=== PATIENT | female | born 1955 ===

== ENCOUNTER 2017-12-23 17:01 | Emergency (ER) | payer MEDICARE, MEDICAID ==
[~2017-12-23] VITALS: Ht 154.9 cm; Wt 59.9 kg
[2017-12-23] MEDS ORDERED: CITA40TA22 PO (17:26)
[2017-12-23] MEDS ORDERED: CLON1TAB PO (17:26)
[2017-12-23] MEDS ORDERED: PROP10TA10 PO (17:26)
[2017-12-23 17:57] LABS: *BILIRUBIN,URIN NEGATIVE (NEGATIVE); *BLOOD, URINE NEGATIVE (NEGATIVE); *CLARITY,URINE SLIGHTLY CLOUDY (CLEAR); *COLOR,URINE YELLOW (YELLOW); *KETONES,URINE NEGATIVE (NEGATIVE); *PROTEIN,URINE NEGATIVE (NEGATIVE); *UROBILINOGEN,URINE 0.2 E.U./dl (NORMAL); LEUKOCYTE ESTERASE ,URINE 1+ (NEGATIVE); NITRITE, URINE NEGATIVE (NEGATIVE); UGLUCOSE NEGATIVE (NEGATIVE)
[2017-12-23 17:59] LABS: BASOPHILS # (AUTO) 0.1 K/uL (0.0-8.0); BASOPHILS % (AUTO) 0.7 % (0.0-2.0); EOSINOPHILS # (AUTO) 0.1 K/uL (0.0-0.7); EOSINOPHILS % (AUTO) 0.9 % (0.0-7.0); HEMATOCRIT 36.4 % (31.2-41.9); HEMOGLOBIN 12.2 g/dL (10.9-14.3); LYMPHOCYTES # (AUTO) 3.6 K/uL (20.0-40.0); LYMPHOCYTES % (AUTO) 47.3 % (20.5-51.5); MEAN CORPUSCULAR HEMOGLOBIN 29.4 uug (24.7-32.8); MEAN CORPUSCULAR HGB CONC 34 g/dL (32.3-35.6); MEAN CORPUSCULAR VOLUME 87.8 fL (75.5-95.3); MONOCYTES # (AUTO) 0.5 K/uL (2.0-10.0); MONOCYTES % (AUTO) 7.2 % (0.0-11.0); NEUTROPHILS # (AUTO) 3.4 K/uL (1.8-8.9); NEUTROPHILS % (AUTO) 43.9 % (38.5-71.5); PLATELET COUNT (AUTO) 311 K/uL (179-408); RED BLOOD CELL COUNT(AUTO) 4.14 MIL/uL (3.63-4.92); WHITE BLOOD COUNT (AUTO) 7.6 K/uL (3.8-11.8)
[2017-12-23 18:02] LABS: BACTERIA,URINE MANY /HPF (NONE SEEN); RBC,URINE 0-3 /HPF (0-3); SQUAMOUS EPITHELIAL CELL,UR FEW /HPF (NONE SEEN)
[2017-12-23 18:05] LABS: *AMPHETAMINE, URINE NEGATIVE (NEGATIVE); *BARBITURATE, URINE NEGATIVE (NEGATIVE); *CANNABINOID, URINE NEGATIVE (NEGATIVE); *COCCAINE, URINE NEGATIVE (NEGATIVE); *OPIATE, URINE POSITIVE (NEGATIVE); *PHENCYCLIDINE SCREEN,URINE NEGATIVE (NEGATIVE); CARBON DIOXIDE 26 mmol/L (21-32); CHLORIDE 103 mmol/L (98-107); CREATININE 0.9 mg/dL (0.6-1.3); ETHANOL < 3 MG/DL (0-0); GLUCOSE 65 mg/dL (74-106); POTASSIUM 3.7 mmol/L (3.5-5.1); UREA NITROGEN, BLOOD 14 mg/dL (7-18)
--- NOTE | 2017-12-23 18:16 | NUR ---
[facility] sandwich and juice provided for pt.
[2017-12-23 18:17] LABS: ALANINE AMINOTRANSFERASE 21 U/L (14-59); ALKALINE PHOSPHATASE 93 U/L (50-136); ASPARTATE AMINOTRANSFERASE 14 U/L (15-37); BILIRUBIN,DIRECT 0.1 mg/dL (0.0-0.2); BILIRUBIN,TOTAL 0.4 mg/dL (0.2-1.0); TOTAL PROTEIN, SERUM 7.2 g/dL (6.4-8.2)
--- NOTE | 2017-12-23 18:23 | NUR ---
pt medically cleard. called jay for psych eval.
--- NOTE | 2017-12-23 19:00 | NUR ---
pinky at bedside for psych eval.
--- NOTE | 2017-12-23 19:51 | NUR ---
GROUND SOURCE HEAT PUMP TECHNICIAN determined patient did not meet criteria for 5150 hold, while GROUND SOURCE HEAT PUMP TECHNICIAN was attempting to obtain placement and/or authorize admission patient stated that she did not wish to wait any longer. Patient eloped from facility. ER physician notified.
== END 2017-12-23 19:55 | disposition left against medical advice (07) ==
LOC: ER 17:03
DX: F41.9 Anxiety disorder, unspecified (principal); F32.9 Major depressive disorder, single episode, unspecified; M54.5 Low back pain; R06.02 Shortness of breath; M79.604 Pain in right leg; F17.290 Nicotine dependence, other tobacco product, uncomplicated; Z88.2 Allergy status to sulfonamides; Z88.5 Allergy status to narcotic agent
CPT/HCPCS: 36415; 71045; 80048; 80076; 80307; 81001; 85025; 87086; 93005; 99285; 99406; G0480; A4663

== ENCOUNTER 2017-12-24 19:45 | Inpatient (IN) | payer MEDICARE, MEDICAID ==
[~2017-12-24] VITALS: Ht 154.9 cm; Wt 62.6 kg
[~2017-12-24 19:45] MED LIST: CITA40TA22 PO; CLON1TAB PO; PROP10TA10 PO
[2017-12-24] MEDS ORDERED: HYDROCODONE/APAP 10-325 MG TABLET PO ONE (20:30)
[2017-12-24] MEDS ORDERED: HYDROCODONE/APAP 10-325 MG TABLET ONE (20:32)
[2017-12-24 20:47] LABS: BASOPHILS # (AUTO) 0.1 K/uL (0.0-8.0); BASOPHILS % (AUTO) 0.7 % (0.0-2.0); EOSINOPHILS # (AUTO) 0.1 K/uL (0.0-0.7); EOSINOPHILS % (AUTO) 0.7 % (0.0-7.0); HEMATOCRIT 34.5 % (31.2-41.9); HEMOGLOBIN 11.7 g/dL (10.9-14.3); LYMPHOCYTES # (AUTO) 2.9 K/uL (20.0-40.0); LYMPHOCYTES % (AUTO) 31.3 % (20.5-51.5); MEAN CORPUSCULAR HEMOGLOBIN 29.6 uug (24.7-32.8); MEAN CORPUSCULAR HGB CONC 34 g/dL (32.3-35.6); MEAN CORPUSCULAR VOLUME 87.1 fL (75.5-95.3); MONOCYTES # (AUTO) 0.8 K/uL (2.0-10.0); MONOCYTES % (AUTO) 8.1 % (0.0-11.0); NEUTROPHILS # (AUTO) 5.5 K/uL (1.8-8.9); NEUTROPHILS % (AUTO) 59.2 % (38.5-71.5); PLATELET COUNT (AUTO) 280 K/uL (179-408); RED BLOOD CELL COUNT(AUTO) 3.96 MIL/uL (3.63-4.92); WHITE BLOOD COUNT (AUTO) 9.4 K/uL (3.8-11.8)
[2017-12-24 20:56] LABS: CARBON DIOXIDE 26 mmol/L (21-32); CHLORIDE 101 mmol/L (98-107); CREATININE 0.8 mg/dL (0.6-1.3); GLUCOSE 86 mg/dL (74-106); POTASSIUM 3.4 mmol/L (3.5-5.1); UREA NITROGEN, BLOOD 14 mg/dL (7-18)
[2017-12-24 21:10] LABS: ETHANOL < 3 MG/DL (0-0)
[2017-12-24 21:12] LABS: ALANINE AMINOTRANSFERASE 19 U/L (14-59); ALKALINE PHOSPHATASE 91 U/L (50-136); ASPARTATE AMINOTRANSFERASE 16 U/L (15-37); BILIRUBIN,DIRECT 0.1 mg/dL (0.0-0.2); BILIRUBIN,TOTAL 0.3 mg/dL (0.2-1.0)
[2017-12-24 21:14] LABS: ACETAMINOPHEN < 2.0 ug/mL (10-30)
[2017-12-24] MEDS ORDERED: POTASSIUM CHLORIDE 20 MEQ TAB.PRT.SR ONE (21:29)
[2017-12-24] MEDS ORDERED: POTASSIUM CHLORIDE 20 MEQ TAB.PRT.SR PO ONE (21:30)
[2017-12-24] MEDS ORDERED: ACETAMINOPHEN 325 MG TABLET PO PRN (23:45)
[2017-12-25] VITALS: BP 95/50
[2017-12-25] MEDS ORDERED: MAGNESIUM HYDROXIDE 30 ML LIQUID UDC PO PRN (00:45)
[2017-12-25] MEDS ORDERED: ZOLPIDEM 5 MG TABLET PO PRN (00:45)
[2017-12-25] MEDS: NICOTINE 14 MG/24HR PATCH TD SCH ×2 (00:58→08:29)
[2017-12-25] MEDS: PROPRANOLOL HCL 10 MG TABLET PO SCH ×3 (07:01→22:00)
[2017-12-25 10:03] VITALS: BP 108/68
[2017-12-25] MEDS: HYDROCODONE/APAP 5-325MG TABLET PO PRN ×2 (10:03→19:57)
[2017-12-25 11:16] VITALS: BP 115/47
[2017-12-25] MEDS: QUETIAPINE FUMARATE 25 MG TABLET PO SCH ×2 (13:19→16:23)
[2017-12-25] MEDS: CITALOPRAM 20 MG TABLET PO SCH (13:19)
[2017-12-25 14:52] LABS: *AMPHETAMINE, URINE NEGATIVE (NEGATIVE); *BARBITURATE, URINE NEGATIVE (NEGATIVE); *CANNABINOID, URINE NEGATIVE (NEGATIVE); *COCCAINE, URINE NEGATIVE (NEGATIVE); *OPIATE, URINE POSITIVE (NEGATIVE); *PHENCYCLIDINE SCREEN,URINE NEGATIVE (NEGATIVE)
[2017-12-25 15:19] VITALS: BP 100/54
[2017-12-25 20:09] VITALS: BP 110/61
[2017-12-26] MEDS: HYDROCODONE/APAP 5-325MG TABLET PO PRN ×3 (05:45→20:43)
[2017-12-26] MEDS: PROPRANOLOL HCL 10 MG TABLET PO SCH ×3 (06:00→21:56)
[2017-12-26] MEDS: CITALOPRAM 20 MG TABLET PO SCH (09:45)
[2017-12-26] MEDS: NICOTINE 14 MG/24HR PATCH TD SCH (09:46)
[2017-12-26] MEDS: ASPIRIN EC 81 MG TABLET.DR PO SCH (09:46)
[2017-12-26] MEDS: QUETIAPINE FUMARATE 25 MG TABLET PO SCH ×3 (09:46→17:04)
[2017-12-26] MEDS: LORAZEPAM 0.5 MG TABLET PO PRN ×3 (09:54→21:57)
[2017-12-26 11:03] VITALS: BP 104/46
[2017-12-26 15:17] VITALS: BP 100/51
[2017-12-26 19:10] VITALS: BP 110/56
[2017-12-26] MEDS: EZETIMIBE 10 MG TABLET PO SCH (20:43)
[2017-12-26] MEDS: ATORVASTATIN 40 MG TABLET PO SCH (20:43)
[2017-12-27] VITALS (7 sets, daily range): BP systolic 79–118; BP diastolic 35–62
[2017-12-27] MEDS: HYDROCODONE/APAP 5-325MG TABLET PO PRN ×3 (05:02→17:35)
[2017-12-27] MEDS: PROPRANOLOL HCL 10 MG TABLET PO SCH ×3 (06:00→22:00)
[2017-12-27] MEDS: QUETIAPINE FUMARATE 25 MG TABLET PO SCH ×3 (08:33→20:15)
[2017-12-27] MEDS: ASPIRIN EC 81 MG TABLET.DR PO SCH (08:33)
[2017-12-27] MEDS: CITALOPRAM 20 MG TABLET PO SCH (08:33)
[2017-12-27] MEDS: NICOTINE 14 MG/24HR PATCH TD SCH (08:33)
[2017-12-27] MEDS: LORAZEPAM 0.5 MG TABLET PO PRN ×2 (13:45→20:15)
[2017-12-27] MEDS: ATORVASTATIN 40 MG TABLET PO SCH (20:15)
[2017-12-27] MEDS: EZETIMIBE 10 MG TABLET PO SCH (20:15)
[2017-12-28 04:55] VITALS: BP 103/58
[2017-12-28] MEDS: PROPRANOLOL HCL 10 MG TABLET PO SCH ×3 (06:00→21:09)
[2017-12-28] MEDS: HYDROCODONE/APAP 5-325MG TABLET PO PRN ×2 (06:40→15:00)
[2017-12-28] MEDS: ASPIRIN EC 81 MG TABLET.DR PO SCH (09:50)
[2017-12-28] MEDS: CITALOPRAM 20 MG TABLET PO SCH (09:50)
[2017-12-28] MEDS: NICOTINE 14 MG/24HR PATCH TD SCH (09:50)
[2017-12-28] MEDS: HYDROXYZINE PAMOATE 25 MG CAPSULE PO PRN ×2 (10:52→18:55)
[2017-12-28 11:08] VITALS: BP 117/50
[2017-12-28 15:27] VITALS: BP 107/48
[2017-12-28 20:02] VITALS: BP 125/58
[2017-12-28] MEDS: ATORVASTATIN 40 MG TABLET PO SCH (21:05)
[2017-12-28] MEDS: NITROFURANTOIN/NITROFURAN MAC 100 MG CAPSULE PO SCH (21:05)
[2017-12-28] MEDS: EZETIMIBE 10 MG TABLET PO SCH (21:06)
[2017-12-28] MEDS: QUETIAPINE FUMARATE 25 MG TABLET PO SCH (21:06)
[2017-12-29] MEDS: HYDROCODONE/APAP 5-325MG TABLET PO PRN ×3 (03:29→18:50)
[2017-12-29 04:00] VITALS: BP 110/47
[2017-12-29] MEDS: PROPRANOLOL HCL 10 MG TABLET PO SCH ×3 (05:58→22:00)
[2017-12-29] MEDS: HYDROXYZINE PAMOATE 25 MG CAPSULE PO PRN (06:34)
[2017-12-29] MEDS: NITROFURANTOIN/NITROFURAN MAC 100 MG CAPSULE PO SCH ×2 (09:07→20:40)
[2017-12-29] MEDS: CITALOPRAM 20 MG TABLET PO SCH (09:07)
[2017-12-29] MEDS: ASPIRIN EC 81 MG TABLET.DR PO SCH (09:07)
[2017-12-29] MEDS: NICOTINE 14 MG/24HR PATCH TD SCH (09:08)
[2017-12-29 11:10] VITALS: BP 111/63
[2017-12-29] MEDS: MAG HYDROX/AL HYDROX/SIMETH 30 ML LIQUID UDC PO PRN (12:33)
[2017-12-29 15:14] VITALS: BP 107/54
[2017-12-29 20:00] VITALS: BP 107/50
[2017-12-29] MEDS: EZETIMIBE 10 MG TABLET PO SCH (20:40)
[2017-12-29] MEDS: ATORVASTATIN 40 MG TABLET PO SCH (20:41)
[2017-12-29] MEDS: QUETIAPINE FUMARATE 25 MG TABLET PO SCH (20:41)
[2017-12-30 04:00] VITALS: BP 116/64
[2017-12-30] MEDS: HYDROCODONE/APAP 5-325MG TABLET PO PRN ×3 (06:27→23:09)
[2017-12-30] MEDS: PROPRANOLOL HCL 10 MG TABLET PO SCH ×3 (06:31→22:00)
[2017-12-30 06:53] LABS: BASOPHILS % (AUTO) 0.6 % (0.0-2.0); EOSINOPHILS # (AUTO) 0.1 K/uL (0.0-0.7); EOSINOPHILS % (AUTO) 1.5 % (0.0-7.0); HEMOGLOBIN 12.6 g/dL (10.9-14.3); LYMPHOCYTES # (AUTO) 2.6 K/uL (20.0-40.0); LYMPHOCYTES % (AUTO) 37.8 % (20.5-51.5); MEAN CORPUSCULAR HEMOGLOBIN 29.7 uug (24.7-32.8); MEAN CORPUSCULAR HGB CONC 34 g/dL (32.3-35.6); MEAN CORPUSCULAR VOLUME 87.2 fL (75.5-95.3); MONOCYTES # (AUTO) 0.6 K/uL (2.0-10.0); MONOCYTES % (AUTO) 8.7 % (0.0-11.0); NEUTROPHILS # (AUTO) 3.5 K/uL (1.8-8.9); NEUTROPHILS % (AUTO) 51.4 % (38.5-71.5); PLATELET COUNT (AUTO) 322 K/uL (179-408); RED BLOOD CELL COUNT(AUTO) 4.25 MIL/uL (3.63-4.92); WHITE BLOOD COUNT (AUTO) 6.8 K/uL (3.8-11.8)
[2017-12-30 07:27] LABS: BILIRUBIN,TOTAL 0.3 mg/dL (0.2-1.0); CREATININE 0.8 mg/dL (0.6-1.3); MAGNESIUM 1.9 mg/dL (1.8-2.4); PHOSPHOROUS 3.8 mg/dL (2.5-4.9); TOTAL PROTEIN, SERUM 7.2 g/dL (6.4-8.2); URIC ACID 3.5 mg/dL (2.6-6.0)
[2017-12-30] MEDS: ASPIRIN EC 81 MG TABLET.DR PO SCH (08:01)
[2017-12-30] MEDS: NITROFURANTOIN/NITROFURAN MAC 100 MG CAPSULE PO SCH ×2 (08:01→20:04)
[2017-12-30] MEDS: NICOTINE 14 MG/24HR PATCH TD SCH (08:01)
[2017-12-30] MEDS: CITALOPRAM 20 MG TABLET PO SCH (08:01)
[2017-12-30 11:01] VITALS: BP 121/46
[2017-12-30] MEDS: HYDROXYZINE PAMOATE 25 MG CAPSULE PO PRN (12:56)
[2017-12-30 15:14] VITALS: BP 120/48
[2017-12-30 20:00] VITALS: BP 94/52
[2017-12-30] MEDS: QUETIAPINE FUMARATE 25 MG TABLET PO SCH (20:05)
[2017-12-30] MEDS: ATORVASTATIN 40 MG TABLET PO SCH (20:05)
[2017-12-30] MEDS: EZETIMIBE 10 MG TABLET PO SCH (20:05)
[2017-12-31 05:00] VITALS: BP 113/69
[2017-12-31] MEDS: PROPRANOLOL HCL 10 MG TABLET PO SCH ×3 (05:16→22:00)
[2017-12-31] MEDS: HYDROCODONE/APAP 5-325MG TABLET PO PRN ×3 (07:30→23:42)
[2017-12-31] MEDS: NICOTINE 14 MG/24HR PATCH TD SCH (09:15)
[2017-12-31] MEDS: NITROFURANTOIN/NITROFURAN MAC 100 MG CAPSULE PO SCH ×2 (09:15→20:36)
[2017-12-31] MEDS: ASPIRIN EC 81 MG TABLET.DR PO SCH (09:15)
[2017-12-31] MEDS: CITALOPRAM 20 MG TABLET PO SCH (09:15)
[2017-12-31 11:09] VITALS: BP 103/56
[2017-12-31] MEDS: MAG HYDROX/AL HYDROX/SIMETH 30 ML LIQUID UDC PO PRN ×2 (12:42→20:42)
[2017-12-31] MEDS: HYDROXYZINE PAMOATE 25 MG CAPSULE PO PRN ×2 (12:48→20:47)
[2017-12-31 15:09] VITALS: BP 108/58
[2017-12-31 19:23] VITALS: BP 103/51
[2017-12-31] MEDS: EZETIMIBE 10 MG TABLET PO SCH (20:36)
[2017-12-31] MEDS: QUETIAPINE FUMARATE 25 MG TABLET PO SCH (20:36)
[2017-12-31] MEDS: ATORVASTATIN 40 MG TABLET PO SCH (20:36)
[2018-01-01 03:32] VITALS: BP 125/44
[2018-01-01] MEDS: PROPRANOLOL HCL 10 MG TABLET PO SCH (05:22)
[2018-01-01] MEDS: MAG HYDROX/AL HYDROX/SIMETH 30 ML LIQUID UDC PO PRN (06:49)
[2018-01-01] MEDS: HYDROXYZINE PAMOATE 25 MG CAPSULE PO PRN ×2 (06:49→13:19)
[2018-01-01] MEDS: HYDROCODONE/APAP 5-325MG TABLET PO PRN (07:49)
[2018-01-01] MEDS: NITROFURANTOIN/NITROFURAN MAC 100 MG CAPSULE PO SCH (08:01)
[2018-01-01] MEDS: ASPIRIN EC 81 MG TABLET.DR PO SCH (08:01)
[2018-01-01] MEDS: NICOTINE 14 MG/24HR PATCH TD SCH (08:01)
[2018-01-01] MEDS: CITALOPRAM 20 MG TABLET PO SCH (08:01)
[2018-01-01 11:03] VITALS: BP 129/48
== END 2018-01-01 14:00 | DRG 885 ==
LOC: ER 19:50 → GPSOV 22:34
PROVIDERS: ADMIT Psychiatry & Neurology Psychiatry
DX: F31.5 Bipolar disorder, current episode depressed, severe, with psychotic features (principal); N39.0 Urinary tract infection, site not specified; Z59.0 Homelessness; S32.10XD Unspecified fracture of sacrum, subsequent encounter for fracture with routine healing; W19.XXXD Unspecified fall, subsequent encounter; Z96.659 Presence of unspecified artificial knee joint; Z88.6 Allergy status to analgesic agent; Z88.2 Allergy status to sulfonamides; B96.1 Klebsiella pneumoniae [K. pneumoniae] as the cause of diseases classified elsewhere; E87.6 Hypokalemia; Z74.09 Other reduced mobility; F17.210 Nicotine dependence, cigarettes, uncomplicated; J44.9 Chronic obstructive pulmonary disease, unspecified; M79.7 Fibromyalgia; M54.10 Radiculopathy, site unspecified; M54.30 Sciatica, unspecified side; Z79.899 Other long term (current) drug therapy; G89.4 Chronic pain syndrome; F41.0 Panic disorder [episodic paroxysmal anxiety]; E78.5 Hyperlipidemia, unspecified; E03.9 Hypothyroidism, unspecified; I10 Essential (primary) hypertension; M19.90 Unspecified osteoarthritis, unspecified site; F11.10 Opioid abuse, uncomplicated
CPT/HCPCS: 36415; 80307; 82652; 83735; 84100; 84443; 84550; 85025; 93005; 97116; 97530; A4663; G0480; G0480-TC; J3490

== ENCOUNTER 2018-02-26 15:40 | Emergency (ER) | payer MEDICARE, MEDICAID ==
[~2018-02-26] VITALS: Ht 154.9 cm; Wt 64.4 kg
--- NOTE | 2018-02-26 15:50 | NUR ---
PT A/OX4, BIB PRIVATE AMBULANCE FROM [facility]. PER EMT, PT SELF-ADMIN "UNKNOWN NUMBER OF KLONOPIN, SUDAFED, AND NORCO". PT DENIES HAVING CONSUMED MULTIPLE DOSES OF MENTIONED MEDICATIONS. PERRLA. PT DENIES PAIN, C/P, SOB, N/V/D, DIZZINESS, HEADACHE.
[2018-02-26 16:36] LABS: BASOPHILS % (AUTO) 0.6 % (0.0-2.0); EOSINOPHILS # (AUTO) 0.1 K/uL (0.0-0.7); EOSINOPHILS % (AUTO) 1.8 % (0.0-7.0); HEMATOCRIT 33.6 % (31.2-41.9); HEMOGLOBIN 11.6 g/dL (10.9-14.3); LYMPHOCYTES # (AUTO) 3.2 K/uL (20.0-40.0); LYMPHOCYTES % (AUTO) 41.8 % (20.5-51.5); MEAN CORPUSCULAR HEMOGLOBIN 30.1 uug (24.7-32.8); MEAN CORPUSCULAR HGB CONC 35 g/dL (32.3-35.6); MEAN CORPUSCULAR VOLUME 86.8 fL (75.5-95.3); MONOCYTES # (AUTO) 0.7 K/uL (2.0-10.0); MONOCYTES % (AUTO) 9.4 % (0.0-11.0); NEUTROPHILS # (AUTO) 3.6 K/uL (1.8-8.9); NEUTROPHILS % (AUTO) 46.4 % (38.5-71.5); PLATELET COUNT (AUTO) 252 K/uL (179-408); RED BLOOD CELL COUNT(AUTO) 3.87 MIL/uL (3.63-4.92); WHITE BLOOD COUNT (AUTO) 7.7 K/uL (3.8-11.8)
[2018-02-26] MEDS ORDERED: MULT-213 PO (16:52)
[2018-02-26] MEDS ORDERED: ASPI-605 PO (16:52)
[2018-02-26] MEDS ORDERED: HYDR-3326 PO (16:52)
[2018-02-26] MEDS ORDERED: PSEU-231 PO (16:52)
[2018-02-26] MEDS ORDERED: MAGN400O6 PO (16:52)
[2018-02-26] MEDS ORDERED: QUET25TA PO (16:52)
[2018-02-26] MEDS ORDERED: CITA40TA22 PO (16:52)
[2018-02-26] MEDS ORDERED: DIPH25CA83 PO (16:52)
[2018-02-26] MEDS ORDERED: PROP10TA68 PO (16:52)
[2018-02-26] MEDS ORDERED: CLON0.5T12 PO (16:52)
[2018-02-26] MEDS ORDERED: FLUT9.9S NS (16:52)
[2018-02-26] MEDS ORDERED: EZET10TA13 PO (16:52)
[2018-02-26] MEDS ORDERED: ATOR40TA PO (16:52)
[2018-02-26] MEDS ORDERED: DOCU-141 PO (16:52)
[2018-02-26] MEDS ORDERED: MAG355OR18 PO (16:52)
[2018-02-26 16:53] LABS: ACETAMINOPHEN < 2.0 ug/mL (10-30); ALANINE AMINOTRANSFERASE 26 U/L (14-59); ALKALINE PHOSPHATASE 68 U/L (50-136); ASPARTATE AMINOTRANSFERASE 37 U/L (15-37); BILIRUBIN,DIRECT 0.2 mg/dL (0.0-0.2); BILIRUBIN,TOTAL 0.6 mg/dL (0.2-1.0); CARBON DIOXIDE 24 mmol/L (21-32); CHLORIDE 101 mmol/L (98-107); CREATININE 0.9 mg/dL (0.6-1.3); GLUCOSE 92 mg/dL (74-106); POTASSIUM 3.4 mmol/L (3.5-5.1); TOTAL PROTEIN, SERUM 7.8 g/dL (6.4-8.2); UREA NITROGEN, BLOOD 19 mg/dL (7-18)
[2018-02-26 16:54] LABS: *BILIRUBIN,URIN NEGATIVE (NEGATIVE); *BLOOD, URINE Trace-intact (NEGATIVE); *COLOR,URINE YELLOW (YELLOW); *KETONES,URINE TRACE (NEGATIVE); *PROTEIN,URINE TRACE (NEGATIVE); *UROBILINOGEN,URINE 0.2 E.U./dl (NORMAL); LEUKOCYTE ESTERASE ,URINE TRACE (NEGATIVE); NITRITE, URINE NEGATIVE (NEGATIVE); PH,URINE 6.5 (5.0-8.0); UGLUCOSE NEGATIVE (NEGATIVE)
[2018-02-26 16:55] LABS: ETHANOL < 3 MG/DL (0-0)
--- NOTE | 2018-02-26 16:59 | NUR ---
EVAN VILLAFANA AT BEDSIDE FOR PT UPDATE.
[2018-02-26 17:02] LABS: *CLARITY,URINE SLIGHTLY HAZY (CLEAR)
[2018-02-26 17:03] LABS: BACTERIA,URINE FEW /HPF (NONE SEEN); MUCUS,URINE FEW /LPF (0-FEW); SQUAMOUS EPITHELIAL CELL,UR MODERATE /HPF (NONE SEEN)
[2018-02-26 17:17] LABS: *AMPHETAMINE, URINE POSITIVE (NEGATIVE); *BARBITURATE, URINE NEGATIVE (NEGATIVE); *CANNABINOID, URINE NEGATIVE (NEGATIVE); *COCCAINE, URINE NEGATIVE (NEGATIVE); *OPIATE, URINE POSITIVE (NEGATIVE); *PHENCYCLIDINE SCREEN,URINE NEGATIVE (NEGATIVE)
--- NOTE | 2018-02-26 17:27 | NUR ---
CALLED [facility], SPOKE W/ TESHA, TRIP #[id number] PICK-UP ETA [phone]
--- NOTE | 2018-02-26 18:42 | NUR ---
Patient discharged to home in stable conditon. Written and verbal after care instructions given. Patient verbalizes understanding of instructions. [facility]. PT SELF-AMBULATED TO [facility] W/O DIFFICULTY. ALL BELONGINGS W/ PT.
[2018-02-26 18:45] VITALS: BP 116/75
== END 2018-02-26 18:45 | disposition home or self-care (01) ==
LOC: ER 15:43
DX: F19.10 Other psychoactive substance abuse, uncomplicated (principal); F15.10 Other stimulant abuse, uncomplicated; G24.01 Drug induced subacute dyskinesia; T42.4X5A Adverse effect of benzodiazepines, initial encounter; T39.1X5A Adverse effect of 4-Aminophenol derivatives, initial encounter; I10 Essential (primary) hypertension; E03.9 Hypothyroidism, unspecified; Z88.2 Allergy status to sulfonamides; Z88.5 Allergy status to narcotic agent; Z79.82 Long term (current) use of aspirin; Z79.51 Long term (current) use of inhaled steroids; Z79.891 Long term (current) use of opiate analgesic; Z79.899 Other long term (current) drug therapy; Y92.89 Other specified places as the place of occurrence of the external cause
CPT/HCPCS: 36415; 80048; 80076; 80307; 81001; 85025; 99283; G0480 ×2; G0481; A4663